=== PATIENT | male | born 1950 | race American Indian/Alaskan Native ===

== ENCOUNTER 2021-10-27 09:12 | Emergency (ER) | payer OTHER ==
[~2021-10-27] VITALS: Ht 165.1 cm; Wt 90.7 kg
[~2021-10-27 09:12] MED LIST: AMBIEN10 MG PO; DIGOXIN125 MCG PO; DOXYCYCLINE HY100 MG PO; LASIX20 MG PO; METHOTREXATE2.5 MG PO; NITROGLYCERIN0.4 MG SL; NORCO 5-325 TA1 EACH PO; PLAQUENIL200 MG PO; POTASSIUM CHLO10 MEQ PO; SPIRONOLACTONE50 MG PO; SULINDAC200 MG PO; VALACYCLOVIR1000 MG PO
== END 2021-10-27 11:11 | disposition home or self-care (01) ==
LOC: ED 09:12
DX: B34.9 Viral infection, unspecified (principal); Z20.822 Contact with and (suspected) exposure to COVID-19; I50.9 Heart failure, unspecified; M06.9 Rheumatoid arthritis, unspecified; Z87.891 Personal history of nicotine dependence; Z88.8 Allergy status to other drugs, medicaments and biological substances; Z79.899 Other long term (current) drug therapy
CPT/HCPCS: 87502; 99283; C9803; U0003